=== PATIENT | female | born 1975 | race Caucasian/White ===

== ENCOUNTER 2018-07-19 12:14 | Emergency (ER) | payer OTHER, MEDICAID ==
[~2018-07-19] VITALS: Ht 160 cm; Wt 103.9 kg
[~2018-07-19 12:14] MED LIST: AMOXICILLIN 50500 MG PO; AMOXICILLIN875 MG PO; DESYREL50 MG PO; EFFEXOR37.5 MG PO; EXCEDRIN CAPLE1 EACH PO; GLUCOPHAGE500 MG PO; HYDROCHLOROTHIA25 M1 PO; HYDROCODON-ACE1 EAC7 PO; K-DUR 20 MEQ T20 MEQ PO; LISINOPRIL-HCT1 EAC1 PO; MULTI FOR HER1 EACH PO; NAPROSYN500 MG PO; NOHOMEMEDICATIONS; NORCO 5-325 TA1 EACH PO; NORVASC 5 MG TAB5 MG PO; NORVASC10 MG PO; PAXIL10 MG PO; PERCOCET 5-3251 EACH PO; PHENTERMINE HCL15 MG PO; VITAMIN D1000 UNI1 PO; ZYRTEC10 M2 PO
[2018-07-19] MEDS ORDERED: PREDNISONE 10 M10 M1 PO (12:53)
[2018-07-19 13:20] VITALS: BP 142/88
== END 2018-07-19 13:20 | disposition home or self-care (01) ==
LOC: M.ERS 12:14
DX: L23.7 Allergic contact dermatitis due to plants, except food (principal); I10 Essential (primary) hypertension; F32.9 Major depressive disorder, single episode, unspecified; G47.00 Insomnia, unspecified; Z90.710 Acquired absence of both cervix and uterus